=== PATIENT | female | born 1995 ===

== ENCOUNTER 2022-11-28 08:02 | Outpatient (CLI) | payer OTHER | END 2022-11-28 09:25 | disposition home or self-care (01) | LOC: PRENATAL 08:02 | PROVIDERS: ATTEND Obstetrics & Gynecology Maternal & Fetal Medicine | DX: O35.9XX0 Maternal care for (suspected) fetal abnormality and damage, unspecified, not applicable or unspecified (principal); O35.3XX0 Maternal care for (suspected) damage to fetus from viral disease in mother, not applicable or unspecified; O36.8199 Decreased fetal movements, unspecified trimester, other fetus; Z3A.38 38 weeks gestation of pregnancy ==